=== PATIENT | female | born 1950 | race Caucasian/White ===

== ENCOUNTER → 2018-09-02 16:04 | Outpatient (CLI) | payer OTHER, SELFPAY ==
--- NOTE | 2018-09-02 16:10 | DI.RAD.S_ITS ---
PROCEDURE: XR CHEST 2V INDICATIONS: shortness of breath TECHNIQUE: 2 views of the chest were acquired. COMPARISON: None. FINDINGS: Surgical changes and devices: None. Lungs and pleura: Lungs are clear. No pleural effusions or pneumothorax. Mediastinum: Mediastinal contours are normal. Heart size is normal. Bones and chest wall: No suspicious bony abnormalities. Soft tissues appear unremarkable. IMPRESSION: Negative chest. No acute cardiopulmonary process is evident. Dictated by: Chaim Santos M.D. on 09/02/2018 at 16:01 Approved by: Chaim Santos M.D. on 09/02/2018 at 16:01
== END ==
PROVIDERS: PCP Nurse Practitioner; Visit Provider Physician Assistant
DX: R06.02 Shortness of breath (principal)
CPT/HCPCS: 36415; 71046; 82550; 84484; 85379

== ENCOUNTER → 2018-09-02 16:29 | Outpatient (CLI) | payer OTHER, SELFPAY ==
[2018-09-02 17:13] LABS: Creatine Kinase 64 U/L (30-135)
[2018-09-02 17:18] LABS: D Dimer < 200 ng/mL (<230)
[2018-09-02 17:26] LABS: Troponin I < 0.012 ng/mL (0.01-0.034)
== END ==
PROVIDERS: Family Provider Nurse Practitioner; PCP Nurse Practitioner; Visit Provider Physician Assistant
DX: R06.02 Shortness of breath (principal)
CPT/HCPCS: 36415; 82550; 84484; 85379

== ENCOUNTER → 2018-11-02 15:55 | Outpatient (CLI) | payer OTHER, SELFPAY ==
--- NOTE | 2018-11-02 08:00 | DI.MG.S_ITS ---
BILATERAL DIGITAL SCREENING MAMMOGRAM 3D/2D WITH CAD: 11/02/2018 CLINICAL: Routine screening. Family history of breat cancer. Comparison is made to exam dated: 06/09/2017 mammogram - [facility]. There are scattered fibroglandular elements in both breasts. Current study was also evaluated with a Computer Aided Detection (CAD) system. No significant masses, calcifications, or other findings are seen in either breast. There has been no significant interval change. IMPRESSION: NEGATIVE There is no mammographic evidence of malignancy. A 1 year screening mammogram is recommended. This exam was interpreted at Station ID: [id number]. NOTE: For mammograms, a report in lay terms will be sent to the patient. Approximately 15% of breast malignancies will not be visualized mammographically. In the management of a palpable breast mass, a negative mammogram must not discourage biopsy of a clinically suspicious lesion. Electronically Signed By: Catalino Hook M.D. slc/:11/24/2018 15:38:37 letter sent: Normal Exam ACR BI-RADS Category 1: Negative [id number]
== END ==
PROVIDERS: Family Provider Nurse Practitioner; PCP Nurse Practitioner; Visit Provider Nurse Practitioner
DX: Z12.31 Encounter for screening mammogram for malignant neoplasm of breast (principal); Z80.3 Family history of malignant neoplasm of breast
CPT/HCPCS: 77063; 77066; 77067; G0279

== ENCOUNTER → 2018-11-23 15:17 | Outpatient (CLI) | payer OTHER, SELFPAY ==
--- NOTE | 2018-11-23 15:24 | DI.US.S_ITS ---
PROCEDURE: US THYROID INDICATIONS: THYROID NODULE TECHNIQUE: Real-time scanning was performed of the thyroid gland, with image documentation. COMPARISON: Outside Facility, RG, US SOFT TISSUE HEAD OR NECK, 04/16/2016, 13:32. FINDINGS: Right: Thyroid lobe measures 5.4 x 2.1 x 1.6 cm, and is homogeneous in echotexture. Left: Thyroid lobe measures 4.8 x 1.6 x 1.4 cm, and is homogenous in echotexture. Isthmus: 3.0 mm thick. Nodule number: 1 Location: Right mid inferior Size: Not significantly changed at 1.9 x 1.0 x 0.8 cm. Composition: Predominance of Echogenicity: Isoechoic Shape: wider than tall. Margins: Smooth Echogenic foci: None Total points: 3 ACR TI-RADS category: Mildly suspicious Nodule number: 2 Location: Right mid inferior Size: Slightly increased at 1.4 x 0.8 x 0.8 cm. Composition: Predominantly solid Echogenicity: Isoechoic Shape: wider than tall. Margins: Smooth Echogenic foci: None Total points: 3 ACR TI-RADS category: Mildly suspicious Nodule number: 3 Location: Right inferior Size: Unchanged at 1.0 x 1.0 x 1.0 cm. Composition: Solid Echogenicity: Isoechoic Shape: wider than tall. Margins: Smooth Echogenic foci: None Total points: 3 ACR TI-RADS category: Mildly suspicious Nodule number: 4 Location: Left superior Size: Slightly increased at 0.8 x 0.7 x 0.5 cm. Composition: Solid Echogenicity: Hypoechoic Shape: wider than tall. Margins: Smooth Echogenic foci: None Total points: 4 ACR TI-RADS category: Moderately suspicious Nodule number: 5 Location: Left inferior Size: 0.5 x 0.5 x 0.3 cm. Composition: Predominantly cystic Echogenicity: Hypoechoic Shape: wider than tall. Margins: Smooth Echogenic foci: None Total points: 2 ACR TI-RADS category: No suspicious Nodule number: 6 Location: Left inferior Size: 0.6 x 0.4 x 0.3 cm. Composition: Predominantly cystic Echogenicity: Hypoechoic Shape: wider than tall. Margins: Smooth Echogenic foci: None Total points: 2 ACR TI-RADS category: No suspicious IMPRESSION: Bilateral thyroid nodules as above. Recommend continued followup ultrasound as detailed below. ACR TI-RADS definitions and recommendations: TI-RADS 1 (benign): 0 points. FNA not needed. TI-RADS 2 (not suspicious): 2 points. FNA not needed. TI-RADS 3 (mildly suspicious): 3 points. * FNA if 2.5 cm or larger, follow up if 1.5 cm or larger (at 1, 3, and 5 years). TI-RADS 4 (moderately suspicious): 4-6 points. * FNA if 1.5 cm or larger, follow up if 1 cm or larger (at 1, 2, 3, and 5 years). TI-RADS 5 (highly suspicious): 7 points or more. * FNA if 1 cm or larger, follow up if 0.5 cm or larger (every year for 5 years). Dictated by: Sergio VALDERRAMA Interpreted: Krystal Sterling MD on 11/23/2018 at 16:33 Approved by: Krystal Sterling M.D. on 11/23/2018 at 18:29
== END ==
PROVIDERS: PCP Nurse Practitioner; Visit Provider Nurse Practitioner
DX: E04.2 Nontoxic multinodular goiter (principal); I10 Essential (primary) hypertension
CPT/HCPCS: 76536

== ENCOUNTER → 2018-11-30 10:52 | Outpatient (CLI) | payer OTHER, SELFPAY ==
[2018-11-30 11:21] LABS: Add Manual Diff / Slide Review NO; Basophils Absolute Auto 0 /uL (0-100); Basophils Percent Auto 1.3 % (0-2); Eosinophils Absolute Auto 100 /uL (0-450); Eosinophils Percent Auto 3.1 % (2-4); Hematocrit 40.5 % (36-46); Hemoglobin 13.5 g/dL (12.0-16.0); Lymphocytes Absolute Auto 700 /uL (1100-4500); Lymphocytes Percent Auto 23.2 % (25-40); Mean Corpuscular HGB Conc 33.3 % (30-36); Mean Corpuscular Hemoglobin 26.6 PG (26-34); Mean Corpuscular Volume 79.8 fL (80-100); Monocytes Absolute Auto 200 /uL (0-900); Monocytes Percent Auto 7.6 % (3-14); Neutrophils Absolute Auto 1900 /uL (1500-7000); Neutrophils Percent Auto 64.8 % (50-75); Platelet Count 185 X10^3/uL (150-400); Red Blood Cell Count 5.07 X10^6/uL (4.0-5.2); White Blood Cell Count 2.9 X10^3/uL (4.5-11.0)
[2018-11-30 12:13] LABS: Alanine Aminotransferase 22 IU/L (9-52); Albumin 4.1 g/dL (3.5-5.0); Albumin Globulin Ratio 1.6 (1.0-2.8); Alkaline Phosphatase 58 U/L (38-126); Aspartate Aminotransferase 23 IU/L (14-36); BUN Creatinine Ratio 21.4 (6-22); Bilirubin Total 0.7 mg/dL (0.2-1.3); Blood Urea Nitrogen 15 mg/dL (7-17); Calcium 9.4 mg/dL (8.4-10.2); Carbon Dioxide 29 mmol/L (22-32); Chloride 104 mmol/L (98-107); Cholesterol 172 mg/dL (140-199); Estimated Glomerular Filt Rate > 60.0 mL/min (>60); Globulin 2.5 g/dL (1.7-4.1); Glucose 90 mg/dL (80-110); HDL Cholesterol 56 mg/dL (40-60); HEMOLYSIS < 15 (0-50); LDL Cholesterol Calculated 97 mg/dL (<100); Potassium 3.9 mmol/L (3.4-5.1); Sodium 139 mmol/L (137-145); Total Protein 6.6 g/dL (6.3-8.2); Triglycerides 93 mg/dL (35-150)
[2018-11-30 12:14] LABS: Creatinine Urine Random 20.1 mg/dL
[2018-11-30 12:20] LABS: Microalbumi Creatinin Ratio Ur 29.8 ug/mg CR (<30); Microalbumin Urine Random < 0.6 mg/dL (0-1.6)
[2018-11-30 12:45] LABS: TSH w/ Reflex to FT4 1.78 uIU/mL (0.47-4.68)
== END ==
PROVIDERS: PCP Nurse Practitioner; Visit Provider Nurse Practitioner
DX: I10 Essential (primary) hypertension (principal); Z79.899 Other long term (current) drug therapy; D72.819 Decreased white blood cell count, unspecified; E78.00 Pure hypercholesterolemia, unspecified; E04.1 Nontoxic single thyroid nodule
CPT/HCPCS: 36415; 80053; 80061; 82043; 82570; 84443; 85025

== ENCOUNTER 2018-12-16 13:22 | Day surgery (SDC) | payer OTHER, MEDICARE, SELFPAY ==
[2018-12-16] VITALS (10 sets, daily range): BP systolic 113–139; BP diastolic 64–84; PULSE 62–84; RESP 11–16; TEMP 36.3–36.8; O2SAT 94–100; BMI 26.0
[2018-12-16] MEDS: SODIUM CHLORIDE 0.9% 1,000 ML 200 ML IV (13:40)
--- NOTE | 2018-12-16 14:07 | PM.HP.1 ---
History of Present Illness History of Present Illness Date Patient Seen: 12/16/18 Time Patient Seen: 14:07 Chief complaint: [address] Narrative: Patient presents for colorectal screening. They had a previous colonoscopy in 1996 which was normal. On further history denies any recent gastrointestinal symptoms. No nausea, vomiting, abdominal pain, loss of appetite, unexplained weight loss, change in bowel habits, diarrhea, constipation, melena, hematochezia, or bright red blood per rectum. Patient History Medical History (Updated 10/12/18 @ 16:44 by ASHLEY Ruiz) Anemia (Chronic) Ankle pain (Chronic ~2014) Chicken pox (Resolved) Depression (Chronic ~2013) Endometriosis (Chronic ~1993) Fibromyalgia (Chronic ~2005) Foot pain (Chronic ~2014) Heart murmur (Chronic) History of urinary incontinence (Chronic) Measles (Resolved) Migraines (Chronic) Mumps (Resolved) Pneumonia (Chronic) Seborrheic keratosis (Chronic ~2006) Surgical History (Updated 10/12/18 @ 16:44 by ASHLEY Ruiz) Anesthesia (Resolved) History of bladder surgery (Resolved ~1993) History of hysterectomy (Resolved ~1993) History of varicose vein stripping (Resolved ~1993) Family History (Updated 09/21/18 @ 20:01 by Aletha Cano) Father Cancer Mother Cancer Brother Hypertension Alcoholic Grandfather Stroke Grandmother Hypertension Grandfather COPD (chronic obstructive pulmonary disease) Grandmother Alzheimer's disease Social History household members: spouse Smoking Status: Never smoker second hand exposure: No alcohol intake: current (a glass of wine once a week max.) substance use type: does not use Family & Social History Family History (Updated 09/21/18 @ 20:01 by Aletha Cano) Father Cancer Mother Cancer Brother Hypertension Alcoholic Grandfather Stroke Grandmother Hypertension Grandfather COPD (chronic obstructive pulmonary disease) Grandmother Alzheimer's disease Social History: household members spouse Tobacco & Substance use: Smoking Status Never smoker alcohol intake current Meds Home Medications and Allergies Home Medications Medication Instructions Recorded Confirmed Type cranberry extract 200 mg capsule 200 mg PO DAILY 08/15/18 10/06/18 History valacyclovir 500 mg tablet 500 mg PO PRN #0 08/15/18 10/06/18 History Vitamin D3 1 cap PO DAILY 09/16/18 10/06/18 History atorvastatin 20 mg tablet 20 mg PO DAILY 09/16/18 10/06/18 History lysine 500 mg tablet 500 mg PO DAILY 09/16/18 10/06/18 History lisinopril 20 mg tablet 20 mg PO BID #180 tab 11/16/18 12/16/18 Rx Allergies Allergy/AdvReac Type Severity Reaction Status Date / Time codeine [CODEINE] AdvReac Intermediate Nausea and Verified 12/16/18 13:41 vomiting Review of Systems Review of Systems ROS Unobtainable: All systems reviewed & are unremarkable except as noted in HPI and below Exam Vital Signs (past 8 hours): - 12/16/18 13:42 Temperature 97.4 F L Pulse Rate 84 Respiratory Rate 16 Blood Pressure 139/84 Pulse Oximetry 100 Oxygen Delivery Method Room Air Narrative Exam Narrative: General-adult female no acute distress, well nourished HEENT-moist mucous membranes, no scleral icterus Neck-supple with full range of motion, no lymphadenopathy Chest- no labored respirations, clear to auscultation bilaterally Cardiac-regular rate and rhythm Abdomen-soft, nontender, non distended Extremities-no edema, warm well perfused Neurological-alert and oriented x 3. No focal deficits Skin-normal temperature and turgor, no rashes or ulcers Assessment & Plan Assessment & Plan narrative: Patient is requiring colorectal screening. Colonoscopy is recommended. Technical details were discussed. Risks, benefits, alternatives explained. Risks including but not limited to sedation, aspiration, bleeding, pain, missed lesion, incomplete examination, need for further radiographic studies, colonic perforation, need for major abdominal surgery, and all attendant risks major surgery were discussed at length. All questions were answered to their satisfaction, and they voiced understanding.
--- NOTE | 2018-12-16 14:37 | PM.OP.ENDO ---
Operative Date/Time/Diagnoses Date of procedure: 12/16/18 Time of procedure: 14:37 Pre-op diagnosis: screening colonoscopy Post-op diagnosis: same Procedure & Clinicians Study performed: Colonoscopy Same procedure as scheduled: Yes Indications: 67-year-old woman previous colonoscopy 1996 and presents for screening Surgeon: David Quiles Procedure Notes SCOAP/Timeout: Performed Procedure in detail: Digital rectal exam was performed that demonstrated no internal masses. Scope was advanced into rectum and then through the colon. The ileocecal valve was reached. The scope was then carefully withdrawn. The quality of prep was excellent. There were no masses polyps or diverticulosis. The scope was retroflexed within the rectum and demonstrated grade 1 internal hemorrhoids. Scope withdrawal time: 9 Sedation minutes: 28 Specimen(s): none sent Complications: none Impression: Normal colonoscopy Post-procedure Recommendations: Colonscopy in 10 years
[2018-12-16] MEDS: fentaNYL 250 MCG/5 ML INJ IV (15:11)
[2018-12-16] MEDS: MIDAZOLAM 5 MG/5 ML VIAL IV (15:11)
[2018-12-16] MEDS: ONDANSETRON 4 MG/2 ML INJ IV (16:20)
--- NOTE | 2018-12-16 16:26 | SUR.PHASEII ---
Pt vomited a small amt of yellow fluid. Dr. Quiles notified, 4mg zofran ordered and given.
--- NOTE | 2018-12-16 16:58 | SUR.PHASEII ---
Nausea resolved. Pt requested to discharge. Able to dress independently.
== END 2018-12-16 16:35 | disposition home or self-care (01) ==
PROVIDERS: PCP Nurse Practitioner; Visit Provider Surgery
PROC: 0DJD8ZZ Inspection of Lower Intestinal Tract, Via Natural or Artificial Opening Endoscopic (ICD-10-PCS; CPT 45378; principal; 2018-12-16 14:30)
DX: Z12.11 Encounter for screening for malignant neoplasm of colon (principal); K64.0 First degree hemorrhoids
CPT/HCPCS: G0121; 99152; 99153; J2250; J2405; J3010

== ENCOUNTER 2019-06-02 13:51 | Emergency (ER) | payer MEDICARE, SELFPAY ==
--- NOTE | 2019-06-02 14:13 | PC.NURSE ---
Went to greet / triage patient @ [id number], not in waiting room.
--- NOTE | 2019-06-02 14:23 | PC.NURSE ---
Checked for patient, still not in either waiting area. Of note, Jb from registration who was able to id patient walked to the far central registration area / OR waiting area and she was not there.
--- NOTE | 2019-06-03 07:57 | ED.ABDPAIN ---
HPI - Abdominal Pain General Stated Complaint: Hard time breathing, thinks has pneumonia History of Present Illness HPI narrative: Essentially the patient left without treatment and could not be found in triage or in the emergency department. The patient was not seen, evaluated or examined by myself. Related Data Home Medications Medication Instructions Recorded Confirmed cranberry extract 200 mg capsule 200 mg PO DAILY 08/15/18 05/10/19 Vitamin D3 1 cap PO DAILY 09/16/18 06/02/19 lysine 500 mg tablet 500 mg PO DAILY 09/16/18 05/10/19 atorvastatin 20 mg tablet 20 mg PO DAILY tab 05/10/19 06/02/19 Previous Rx's Medication Instructions Recorded valacyclovir 500 mg tablet 500 mg PO BID PRN #20 tab 04/27/19 benzonatate 100 mg capsule 100 mg PO BID-TID PRN #20 cap 05/10/19 lisinopril 20 mg tablet 20 mg PO BID #180 tab 05/29/19 albuterol sulfate 2 puff INHALATION Q4-6H PRN #18 06/02/19 gram prednisone 40 mg PO DAILY #10 tab 06/02/19 promethazine-DM 5 ml PO Q4-6H PRN #100 ml 06/02/19 Allergies Allergy/AdvReac Type Severity Reaction Status Date / Time codeine [CODEINE] AdvReac Intermediate Nausea and Verified 06/02/19 15:53 vomiting Patient History Social History household members: spouse Smoking Status: Never smoker second hand exposure: No alcohol intake: current (a glass of wine once a week max.) substance use type: does not use Smoking Status: Never smoker alcohol intake frequency: holidays/special occasions only Substance Use Type: does not use Discharge Plan Departure Patient Disposition: Home Clinical Impression: Patient left without being seen Discharge Date/Time: 06/02/19 15:39 Prescriptions: No Action cranberry extract 200 mg capsule 200 mg PO DAILY RF: 0 valacyclovir 500 mg tablet 500 mg PO BID PRN (Reason: Cold Sores) Qty: 20 RF: 3 lisinopril 20 mg tablet 20 mg PO BID Qty: 180 RF: 0 lysine 500 mg tablet 500 mg PO DAILY RF: 0 Vitamin D3 1 cap PO DAILY RF: 0 atorvastatin 20 mg tablet 20 mg PO DAILY RF: 0 benzonatate 100 mg capsule 100 mg PO BID-TID PRN (Reason: cough) Qty: 20 RF: 0 prednisone 20 mg tablet 40 mg PO DAILY Qty: 10 RF: 0 albuterol sulfate 90 mcg/actuation HFA aerosol inhaler 2 puff INHALATION Q4-6H PRN (Reason: shortness of breath or wheezing) Qty: 18 RF: 0 promethazine-DM 6.25-15 mg/5 mL syrup 5 ml PO Q4-6H PRN (Reason: cough) Qty: 100 RF: 0
== END 2019-06-02 15:39 | disposition home or self-care (01) ==
PROVIDERS: Emergency Provider Emergency Medicine; PCP Nurse Practitioner

== ENCOUNTER 2019-06-02 15:40 | Emergency (ER) | payer MEDICARE, SELFPAY ==
[2019-06-02 15:53] VITALS: BP 163/92; PULSE 70; RESP 19; TEMP 36.6; O2SAT 99; BMI 25.8
--- NOTE | 2019-06-02 16:21 | DI.RAD.S_ITS ---
PROCEDURE: XR CHEST 2V INDICATIONS: possible pneumonia TECHNIQUE: 2 views of the chest were acquired. COMPARISON: [facility], CR, XR CHEST 2V, 09/02/2018, 16:12. FINDINGS: Surgical changes and devices: None. Lungs and pleura: Lungs appear clear and unchanged. No pleural effusions or pneumothorax. Mediastinum: Mediastinal contours are normal. Heart size is normal. Bones and chest wall: No suspicious bony abnormalities. Soft tissues appear unremarkable. IMPRESSION: No acute cardiopulmonary abnormality. Dictated by: Catalino Hook M.D. on 06/02/2019 at 16:57 Approved by: Catalino Hook M.D. on 06/02/2019 at 16:58
[2019-06-02 17:42] LABS: Add Manual Diff / Slide Review NO; Basophils Absolute Auto 100 /uL (0-100); Basophils Percent Auto 1.5 % (0-2); Eosinophils Absolute Auto 200 /uL (0-450); Eosinophils Percent Auto 6.2 % (2-4); Hematocrit 40.6 % (36-46); Hemoglobin 13.3 g/dL (12.0-16.0); Lymphocytes Absolute Auto 1000 /uL (1100-4500); Lymphocytes Percent Auto 28.3 % (25-40); Mean Corpuscular HGB Conc 32.7 % (30-36); Mean Corpuscular Hemoglobin 26.2 PG (26-34); Mean Corpuscular Volume 80.1 fL (80-100); Monocytes Absolute Auto 300 /uL (0-900); Monocytes Percent Auto 7.4 % (3-14); Neutrophils Absolute Auto 1900 /uL (1500-7000); Neutrophils Percent Auto 56.6 % (50-75); Platelet Count 208 X10^3/uL (150-400); Red Blood Cell Count 5.08 X10^6/uL (4.0-5.2); Red Cell Distribution Width 15.1 % (11.6-14.8); White Blood Cell Count 3.4 X10^3/uL (4.5-11.0)
[2019-06-02 18:02] LABS: Alanine Aminotransferase 21 IU/L (<35); Albumin 4.5 g/dL (3.5-5.0); Albumin Globulin Ratio 1.5 (1.0-2.8); Alkaline Phosphatase 67 U/L (38-126); Aspartate Aminotransferase 23 IU/L (14-36); BUN Creatinine Ratio 16.2 (6-22); Bilirubin Total 0.5 mg/dL (0.2-1.3); Blood Urea Nitrogen 12 mg/dL (7-17); Calcium 9.5 mg/dL (8.4-10.2); Carbon Dioxide 28 mmol/L (22-32); Chloride 105 mmol/L (98-107); Estimated Glomerular Filt Rate > 60.0 mL/min (>60); Glucose 92 mg/dL (80-110); HEMOLYSIS < 15 (0-50); Potassium 3.8 mmol/L (3.4-5.1); Sodium 141 mmol/L (137-145); Total Protein 7.5 g/dL (6.3-8.2)
[2019-06-02 18:07] LABS: Influenza A - CEPHEID Flu A NEGATIVE (NEGATIVE); Influenza B - CEPHEID Flu B NEGATIVE (NEGATIVE)
[2019-06-02 18:11] LABS: NT-proBNP (BNP-Adult 18+) 87 pg/mL (<125)
[2019-06-02] MEDS: ALBUTEROL 2.5 MG/3 ML NEB (ADULT) INH (19:06)
[2019-06-02 19:19] VITALS: PULSE 70; RESP 20; O2SAT 97
[2019-06-02 19:28] VITALS: BP 190/70; PULSE 80; RESP 24
--- NOTE | 2019-06-02 19:38 | PC.NURSE ---
Pt appears mildly anxious.Lungs CTA.No acute resp distress.Lungs CTA.Skin PWD.AOX4.
[2019-06-02] MEDS: ALBUTEROL HFA PREPACK 1 BOX MISC (20:16)
[2019-06-02 20:23] VITALS: PULSE 73; RESP 16; O2SAT 99
--- NOTE | 2019-06-02 20:23 | ED.SOB ---
HPI - SOB/Dyspnea <ANGEL Neville - Last Filed: 06/02/19 20:35> General Chief Complaint: Shortness of Breath/Dyspnea Stated Complaint: thinks she has pneumonia Time Seen by Provider: 06/02/19 16:40 Source: patient Mode of arrival: Ambulatory Limitations: no limitations History of Present Illness HPI Narrative: The patient is a 68-year-old female nonsmoker presents with a chief complaint of a cough on and off for the past several months. She states it got worse over the past 2 days. She denies any chest pain fevers nausea vomiting diarrhea. She states she feels like her lungs are burning. She recently core finished a course of Augmentin for bronchitis. She states she was on Tessalon Perles they have not been helping. Vaccinations are up-to-date she denies any GI involvement. She denies any ear pain or sore throat. Related Data Home Medications Medication Instructions Recorded Confirmed cranberry extract 200 mg capsule 200 mg PO DAILY 08/15/18 05/10/19 Vitamin D3 1 cap PO DAILY 09/16/18 06/02/19 lysine 500 mg tablet 500 mg PO DAILY 09/16/18 05/10/19 atorvastatin 20 mg tablet 20 mg PO DAILY tab 05/10/19 06/02/19 Previous Rx's Medication Instructions Recorded valacyclovir 500 mg tablet 500 mg PO BID PRN #20 tab 04/27/19 benzonatate 100 mg capsule 100 mg PO BID-TID PRN #20 cap 05/10/19 lisinopril 20 mg tablet 20 mg PO BID #180 tab 05/29/19 albuterol sulfate 2 puff INHALATION Q4-6H PRN #18 06/02/19 gram prednisone 40 mg PO DAILY #10 tab 06/02/19 promethazine-DM 5 ml PO Q4-6H PRN #100 ml 06/02/19 Allergies Allergy/AdvReac Type Severity Reaction Status Date / Time codeine [CODEINE] AdvReac Intermediate Nausea and Verified 06/02/19 15:53 vomiting Review of Systems <ANGEL Neville - Last Filed: 06/02/19 20:35> Review of Systems Narrative: GENERAL: Denies chills, fatigue, malaise, fever, sweats. HEENT: Denies sinus pain, ear pain, sore throat, difficulty swallowing, dizziness. RESPIRATORY: See HPI CARDIOVASCULAR: Denies chest pain, palpitations, orthopnea, edema, GASTROINTESTINAL: Denies nausea, vomiting, abdominal pain, diarrhea, constipation, melena. : Denies dysuria, frequency, incontinence, hematuria, urinary retention. MUSCULOSKELETAL: denies weakness, joint pain, or bony pain SKIN: Denies rash, skin lesions, or other NEUROLOGIC: Denies weakness, headache, numbness, change in speech, confusion, seizures, incoordination. PSYCHIATRIC: No concerning psychosocial issues. 12 point review of systems is negative except for those stated above Patient History <ANGEL Neville - Last Filed: 06/02/19 20:35> Medical History Anemia (Chronic) Ankle pain (Chronic ~2014) Chicken pox (Resolved) Depression (Chronic ~2013) Endometriosis (Chronic ~1993) Fibromyalgia (Chronic ~2005) Foot pain (Chronic ~2014) Heart murmur (Chronic) History of urinary incontinence (Chronic) Measles (Resolved) Migraines (Chronic) Mumps (Resolved) Pneumonia (Chronic) Seborrheic keratosis (Chronic ~2006) Surgical History Anesthesia (Resolved) History of bladder surgery (Resolved ~1993) History of hysterectomy (Resolved ~1993) History of varicose vein stripping (Resolved ~1993) Family History Father Cancer Mother Cancer Brother Hypertension Alcoholic Grandfather Stroke Grandmother Hypertension Grandfather COPD (chronic obstructive pulmonary disease) Grandmother Alzheimer's disease Social History household members: spouse Smoking Status: Never smoker second hand exposure: No alcohol intake: current (a glass of wine once a week max.) substance use type: does not use Smoking Status: Never smoker alcohol intake frequency: holidays/special occasions only Substance Use Type: does not use Exam <ANGEL Neville - Last Filed: 06/02/19 20:35> Narrative Exam Narrative: GENERAL: This is a well-nourished, well-developed patient, no acute distress HEAD: Atraumatic. Normocephalic. No temporal or scalp tenderness. EYES: Pupils equal round and reactive. Extraocular motions intact. No scleral icterus. No injection or drainage. ENT: Nose without bleeding, purulent drainage or septal hematoma. Throat without erythema, tonsillar hypertrophy or exudate. Uvula midline. Airway patent. Bilateral TMs pearly black. NECK: Trachea midline. No JVD or lymphadenopathy. Supple, nontender, no meningeal signs. CARDIOVASCULAR: Regular rate and rhythm without murmurs, gallops, or rubs. RESPIRATORY: Clear to auscultation. Breath sounds equal bilaterally. No wheezes, rales, or rhonchi. Very perseverative dry cough. No increased respiratory effort. Speaking full sentences. GASTROINTESTINAL: Abdomen soft, non-tender, nondistended. No hepato-splenomegaly, or palpable masses. No guarding. EXTREMITIES: No clubbing, cyanosis, or edema. No joint tenderness, effusion, or edema noted. BACK: Nontender without deformity or crepitance. No flank tenderness. NEURO: AOx3. SKIN: No rash or erythema on visible skin Initial Vital Signs Initial Vital Signs: Vital Signs Temperature 97.9 F 06/02/19 15:53 Pulse Rate 70 06/02/19 15:53 Respiratory Rate 19 06/02/19 15:53 Blood Pressure 163/92 H 06/02/19 15:53 Pulse Oximetry 99 06/02/19 15:53 <Belle Menendez MD - Last Filed: 06/03/19 03:16> Initial Vital Signs Initial Vital Signs: Vital Signs Temperature 97.9 F 06/02/19 15:53 Pulse Rate 70 06/02/19 15:53 Respiratory Rate 19 06/02/19 15:53 Blood Pressure 163/92 H 06/02/19 15:53 Pulse Oximetry 99 06/02/19 15:53 Scores <ANGEL Neville - Last Filed: 06/02/19 20:35> GCS Brooke coma scale eye opening: Spontaneous Brooke coma scale verbal response: Orientated Dandridge coma scale motor response: Obey commands Brooke coma scale total score: 15 Course <ANGEL Neville - Last Filed: 06/02/19 20:35> Orders Ordered: Discontinued Medications Albuterol (Ventolin) 2.5 mg INH NOW ONE Stop: 06/02/19 19:01 Last Admin: 06/02/19 19:06 Dose: 2.5 mg Documented by: BFOX Albuterol (Ventolin Hfa Prepack) 1 box [facility] ONE Stop: 06/02/19 20:13 Last Admin: 06/02/19 20:16 Dose: 1 box Documented by: KAROL Vital Signs Vital signs: Vital Signs - 8 hr 06/02/19 19:19 06/02/19 19:28 06/02/19 20:23 Pulse Rate 70 80 73 Respiratory Rate 20 24 16 Blood Pressure [Left Arm] 190/70 H Pulse Oximetry 97 99 06/02/19 20:26 Pulse Rate 75 Respiratory Rate 17 Blood Pressure [Left Arm] 170/90 H Pulse Oximetry 97 <Belle Menendez MD - Last Filed: 06/03/19 03:16> Orders Ordered: Discontinued Medications Albuterol (Ventolin) 2.5 mg INH NOW ONE Stop: 06/02/19 19:01 Last Admin: 06/02/19 19:06 Dose: 2.5 mg Documented by: BFOX Albuterol (Ventolin Hfa Prepack) 1 box [facility] ONE Stop: 06/02/19 20:13 Last Admin: 06/02/19 20:16 Dose: 1 box Documented by: KAROL Vital Signs Vital signs: Vital Signs - 8 hr 06/02/19 19:19 06/02/19 19:28 06/02/19 20:23 Pulse Rate 70 80 73 Respiratory Rate 20 24 16 Blood Pressure [Left Arm] 190/70 H Pulse Oximetry 97 99 06/02/19 20:26 Pulse Rate 75 Respiratory Rate 17 Blood Pressure [Left Arm] 170/90 H Pulse Oximetry 97 MDM - SOB/Dyspnea <ANGEL Neville - Last Filed: 06/02/19 20:35> Lab Data Result diagrams: 06/02/19 17:30 06/02/19 17:30 Labs: Lab Results 06/02/19 06/02/19 06/02/19 Range/Units 17:25 17:30 17:30 WBC 3.4 L (4.5-11.0) X10^3/uL RBC 5.08 (4.0-5.2) X10^6/uL Hgb 13.3 (12.0-16.0) g/dL Hct 40.6 (36-46) % MCV 80.1 (80-100) fL MCH 26.2 (26-34) PG MCHC 32.7 (30-36) % RDW 15.1 H (11.6-14.8) % Plt Count 208 (150-400) X10^3/uL Neut % (Auto) 56.6 (50-75) % Lymph % (Auto) 28.3 (25-40) % Foster % (Auto) 7.4 (3-14) % Eos % (Auto) 6.2 H (2-4) % Baso % (Auto) 1.5 (0-2) % Neut # (Auto) 1900 (8016-2954) /uL Lymph # (Auto) 1000 L (1774-3492) /uL Foster # (Auto) 300 (0-900) /uL Eos # (Auto) 200 (0-450) /uL Baso # (Auto) 100 (0-100) /uL Sodium 141 (137-145) mmol/L Potassium 3.8 (3.4-5.1) mmol/L Chloride 105 (98-107) mmol/L Carbon Dioxide 28 (22-32) mmol/L BUN 12 (7-17) mg/dL Creatinine 0.74 (0.52-1.04) mg/dL Estimated GFR > 60.0 (>60) mL/min BUN/Creatinine Ratio 16.2 (6-22) Glucose 92 (80-110) mg/dL Calcium 9.5 (8.4-10.2) mg/dL Total Bilirubin 0.5 (0.2-1.3) mg/dL AST 23 (14-36) IU/L ALT 21 (<35) IU/L Alkaline Phosphatase 67 (38-126) U/L NT-Pro-B Natriuret Pep 87 (<125) pg/mL Total Protein 7.5 (6.3-8.2) g/dL Albumin 4.5 (3.5-5.0) g/dL Globulin 3.0 (1.7-4.1) g/dL Albumin/Globulin Ratio 1.5 (1.0-2.8) Influenza A (RT-PCR) Flu a negative (NEGATIVE) Influenza B (RT-PCR) Flu b negative (NEGATIVE) Point of Care Testing Rapid Strep A Negative Imaging Data Chest x-ray: Radiologist's Impression: [address] [place] [id number] XRay Report Signed Patient: Alessandra Barr EMR#: [id number] : 3Acct:[id number] Age/Sex: 68 / FDate of Service: 06/02/19 Loc: ED Accession Number: [id number] Procedure: XR chest 2V Ordering Provider: Joey Connor MD PROCEDURE: XR CHEST 2V INDICATIONS: possible pneumonia TECHNIQUE: 2 views of the chest were acquired. COMPARISON: [facility], , XR CHEST 2V, 09/02/2018, 16:12. FINDINGS: Surgical changes and devices: None. Lungs and pleura: Lungs appear clear and unchanged. No pleural effusions or pneumothorax. Mediastinum: Mediastinal contours are normal. Heart size is normal. Bones and chest wall: No suspicious bony abnormalities. Soft tissues appear unremarkable. IMPRESSION: No acute cardiopulmonary abnormality. MDM Narrative Medical decision making narrative: The patient is a 68-year-old female who presents with a chief complaint of a cough going on for several months. I will works grossly normal, normal BNP. Chest x-ray shows no acute pneumonias. She responded well to a single dose of albuterol by neb in the emergency department, so she received spacer changing. She is placed on prednisone, given guaifenesin promethazine to help her sleep and a prescription for albuterol. I discussed at length the importance of following up with primary care provider. She has no indications for antibiotic therapy at this point time, she has no leukocytosis, nothing on her x-ray and no acute bacterial infection on her exam. I discussed at length coming back to the emergency department for any acute concerns such as inability keep down clear, severe and shortness of breath etcetera. Given the patient's history of viral symptoms, shortness of breath and cough, we did elect to do carotid virus testing given that her flu test is negative as well. Throat cultures pending at this time as well. Patient has no questions or concerns upon discharge and states understanding return precautions as well as follow-up care. She has been hemodynamically stable throughout her stay in the emergency department. <Belle Menendez MD - Last Filed: 06/03/19 03:16> Lab Data Labs: Lab Results 06/02/19 06/02/19 06/02/19 Range/Units 17:25 17:30 17:30 WBC 3.4 L (4.5-11.0) X10^3/uL RBC 5.08 (4.0-5.2) X10^6/uL Hgb 13.3 (12.0-16.0) g/dL Hct 40.6 (36-46) % MCV 80.1 (80-100) fL MCH 26.2 (26-34) PG MCHC 32.7 (30-36) % RDW 15.1 H (11.6-14.8) % Plt Count 208 (150-400) X10^3/uL Neut % (Auto) 56.6 (50-75) % Lymph % (Auto) 28.3 (25-40) % Foster % (Auto) 7.4 (3-14) % Eos % (Auto) 6.2 H (2-4) % Baso % (Auto) 1.5 (0-2) % Neut # (Auto) 1900 (5460-3074) /uL Lymph # (Auto) 1000 L (5411-2615) /uL Foster # (Auto) 300 (0-900) /uL Eos # (Auto) 200 (0-450) /uL Baso # (Auto) 100 (0-100) /uL Sodium 141 (137-145) mmol/L Potassium 3.8 (3.4-5.1) mmol/L Chloride 105 (98-107) mmol/L Carbon Dioxide 28 (22-32) mmol/L BUN 12 (7-17) mg/dL Creatinine 0.74 (0.52-1.04) mg/dL Estimated GFR > 60.0 (>60) mL/min BUN/Creatinine Ratio 16.2 (6-22) Glucose 92 (80-110) mg/dL Calcium 9.5 (8.4-10.2) mg/dL Total Bilirubin 0.5 (0.2-1.3) mg/dL AST 23 (14-36) IU/L ALT 21 (<35) IU/L Alkaline Phosphatase 67 (38-126) U/L NT-Pro-B Natriuret Pep 87 (<125) pg/mL Total Protein 7.5 (6.3-8.2) g/dL Albumin 4.5 (3.5-5.0) g/dL Globulin 3.0 (1.7-4.1) g/dL Albumin/Globulin Ratio 1.5 (1.0-2.8) Influenza A (RT-PCR) Flu a negative (NEGATIVE) Influenza B (RT-PCR) Flu b negative (NEGATIVE) Point of Care Testing Rapid Strep A Negative Discharge Plan Departure Patient Disposition: Home Clinical Impression: Bronchitis Discharge Date/Time: 06/02/19 20:41 Instructions: DI for Acute Bronchitis Activity Restrictions/Additional Instructions: Thank you for trusting us with your care today. A as I discussed, you do not have any evidence of bacterial pneumonia on her exam. However we are treating you for a viral bronchitis. Please use the spacer with your inhaler. I sent a prescription of cough syrup to [facility]. This cough syrup can be sedating. I also sent a prescription for prednisone. You can start this tomorrow. You take it for 5 days. Please follow-up with primary care provider next few days. Please come back to the emergency department for any acute concerns such as significant shortness of breath, concern of heart attack or stroke. Regarding the CoVid19 testing, please self isolate at home until test results come in. We should get through results back in about 4-5 days. Please come back to emergency department for any acute concerns. Prescriptions: New prednisone 20 mg tablet 40 mg PO DAILY Qty: 10 RF: 0 albuterol sulfate 90 mcg/actuation HFA aerosol inhaler 2 puff INHALATION Q4-6H PRN (Reason: shortness of breath or wheezing) Qty: 18 RF: 0 promethazine-DM 6.25-15 mg/5 mL syrup 5 ml PO Q4-6H PRN (Reason: cough) Qty: 100 RF: 0 No Action cranberry extract 200 mg capsule 200 mg PO DAILY RF: 0 valacyclovir 500 mg tablet 500 mg PO BID PRN (Reason: Cold Sores) Qty: 20 RF: 3 lisinopril 20 mg tablet 20 mg PO BID Qty: 180 RF: 0 lysine 500 mg tablet 500 mg PO DAILY RF: 0 Vitamin D3 1 cap PO DAILY RF: 0 atorvastatin 20 mg tablet 20 mg PO DAILY RF: 0 benzonatate 100 mg capsule 100 mg PO BID-TID PRN (Reason: cough) Qty: 20 RF: 0 Referrals: Mary Ferguson ARNP [Primary Care Provider] -
[2019-06-02 20:26] VITALS: BP 170/90; PULSE 75; RESP 17; O2SAT 97
[2019-06-08 13:53] LABS: COVID19 Sendout Not Detected (Not Detected)
== END 2019-06-02 20:41 | disposition home or self-care (01) ==
PROVIDERS: Emergency Provider Nurse Practitioner Family; PCP Nurse Practitioner
DX: Z03.818 Encounter for observation for suspected exposure to other biological agents ruled out (principal); J40 Bronchitis, not specified as acute or chronic
CPT/HCPCS: 71046; 80053; 83880; 85025; 87070; 87502; 87880; 94640; 99284; DELETED; J7613

== ENCOUNTER → 2019-10-14 10:26 | Outpatient (CLI) | payer MEDICARE, SELFPAY ==
[2019-10-14 10:54] LABS: RBC Urine None Seen (0-5/HPF)
[2019-10-14 11:27] LABS: Appearance Urine UA CLEAR; Bilirubin Urine UA NEGATIVE (NEGATIVE); Color Urine UA YELLOW; Glucose Urine UA NEGATIVE (Negative); Ketones Urine UA NEGATIVE (NEGATIVE); Leukocyte Esterase Urine UA TRACE (NEGATIVE); Nitrite Urine UA NEGATIVE (Negative); Occult Blood Urine UA NEGATIVE (Negative); Protein Urine UA NEGATIVE (Negative); Urobilinogen Urine UA 0.2 E.U./dL (0.2)
[2019-10-14 11:30] LABS: pH Urine UA 6.5 (4.5-8.0)
[2019-10-14 11:33] LABS: Creatinine Urine Random 57.4 mg/dL
[2019-10-14 11:36] LABS: Bacteria Urine Moderate (10-30); Squamous Epithelial Cell Urine 5-10 /HPF (0-5/HPF); WBC Urine 10-30/HPF (0-5/HPF)
[2019-10-14 11:37] LABS: Culture Indicated Urine Cult Not Indicated
[2019-10-14 11:40] LABS: Microalbumi Creatinin Ratio Ur 10.4 ug/mg CR (<30); Microalbumin Urine Random < 0.6 mg/dL (0-1.6)
[2019-10-14 11:44] LABS: Alanine Aminotransferase 18 IU/L (<35); Albumin Globulin Ratio 1.8 (1.0-2.8); Alkaline Phosphatase 63 U/L (38-126); Aspartate Aminotransferase 23 IU/L (14-36); BUN Creatinine Ratio 18.1 (6-22); Bilirubin Total 0.6 mg/dL (0.2-1.3); Blood Urea Nitrogen 13 mg/dL (7-17); Calcium 9.3 mg/dL (8.4-10.2); Carbon Dioxide 29 mmol/L (22-32); Chloride 107 mmol/L (98-107); Cholesterol 165 mg/dL (140-199); Estimated Glomerular Filt Rate > 60.0 mL/min (>60); Globulin 2.2 g/dL (1.7-4.1); Glucose 87 mg/dL (80-110); HDL Cholesterol 65 mg/dL (40-60); HEMOLYSIS < 15 (0-50); LDL Cholesterol Calculated 89 mg/dL (<100); Potassium 4.8 mmol/L (3.4-5.1); Sodium 138 mmol/L (137-145); Total Protein 6.2 g/dL (6.3-8.2); Triglycerides 53 mg/dL (35-150)
[2019-10-14 12:00] LABS: Free T3, Triiodothyronine Free 3.05 pg/mL (2.77-5.27); Free T4, Direct Thyroxine 0.87 ng/dL (0.78-2.19)
[2019-10-14 12:14] LABS: Thyroid Stimulating Hormone 1.41 uIU/mL (0.47-4.68)
== END ==
PROVIDERS: PCP Nurse Practitioner; Referring Provider Nurse Practitioner; Visit Provider Nurse Practitioner
DX: E78.5 Hyperlipidemia, unspecified (principal); I10 Essential (primary) hypertension; R00.0 Tachycardia, unspecified; Z79.899 Other long term (current) drug therapy; R32 Unspecified urinary incontinence; R39.15 Urgency of urination
CPT/HCPCS: 36415; 80053; 80061; 81001; 82043; 82570; 84439; 84443; 84481

== ENCOUNTER → 2019-12-01 16:58 | Outpatient (CLI) | payer MEDICARE, SELFPAY ==
--- NOTE | 2019-12-01 17:00 | DI.US.S_ITS ---
PROCEDURE: US THYROID INDICATIONS: multiple thyroid nodules, follow up per recommendations TECHNIQUE: Real-time scanning was performed of the thyroid gland, with image documentation. COMPARISON: [facility], US, US THYROID, 11/23/2018, 15:36. FINDINGS: Right: Thyroid lobe measures 5.5 x 1.5 x 1.6 cm, and is diffusely heterogeneous in echotexture. Left: Thyroid lobe measures 4.6 x 1.8 x 1.4 cm, and is diffusely heterogeneous in echotexture. 2 colloid cyst present largest measuring 7 mm. Isthmus: 5.0 mm thick. Nodule number: 1 Location: Right mid Size: Unchanged at 1.6 x 0.8 x 1.0 cm. Composition: Predominantly solid Echogenicity: Hypoechoic Shape: wider than tall. Margins: Smooth Echogenic foci: None Total points: 4 ACR TI-RADS category: Moderately suspicious Nodule number: 2 Location: Right inferior Size: Unchanged at 1.1 x 0.9 x 0.9 cm. Composition: Predominantly solid Echogenicity: Hypoechoic Shape: wider than tall. Margins: Smooth Echogenic foci: None Total points: 4 ACR TI-RADS category: Moderately suspicious Nodule number: 3 Location: Right inferior pole Size: Unchanged to slightly increased in size at 1.4 x 1.1 x 1.2 cm. Composition: Solid Echogenicity: Hypoechoic Shape: wider than tall. Margins: Smooth Echogenic foci: None Total points: 4 ACR TI-RADS category: Moderately suspicious Nodule number: 4 Location: Left superior Size: Unchanged 1.2 x 0.5 x 0.7 cm. Composition: Solid Echogenicity: Hypoechoic Shape: wider than tall. Margins: Smooth Echogenic foci: None Total points: 4 ACR TI-RADS category: Moderately suspicious IMPRESSION: No significant interval change in appearance or size of bilateral thyroid nodules and left colloid cyst. Recommend continued followup ultrasound as detailed below. ACR TI-RADS definitions and recommendations: TI-RADS 1 (benign): 0 points. FNA not needed. TI-RADS 2 (not suspicious): 2 points. FNA not needed. TI-RADS 3 (mildly suspicious): 3 points. * FNA if 2.5 cm or larger, follow up if 1.5 cm or larger (at 1, 3, and 5 years). TI-RADS 4 (moderately suspicious): 4-6 points. * FNA if 1.5 cm or larger, follow up if 1 cm or larger (at 1, 2, 3, and 5 years). TI-RADS 5 (highly suspicious): 7 points or more. * FNA if 1 cm or larger, follow up if 0.5 cm or larger (every year for 5 years). Dictated by: Sergio Dasilva [facility] Interpreted: Kennedy Riddle MD on 12/02/2019 at 16:39 Approved by: Kennedy Riddle M.D. on 12/02/2019 at 17:42
--- NOTE | 2019-12-01 17:10 | DI.MG.S_ITS ---
Patient Name: MODESTO VEGA date: 1950 Sex: F Attending Physician: Marty Indications: Date: 12/01/2019 17:01 At the request of: HENRRY PEARCE Procedure: MM screening mammo BI BILATERAL DIGITAL SCREENING MAMMOGRAM 3D/2D WITH CAD: 12/01/2019 CLINICAL: Routine screening. Family history of breast cancer. Comparison is made to exams dated: 11/02/2018 mammogram - [facility] and 06/09/2017 mammogram - [facility]. There are scattered fibroglandular elements in both breasts. Current study was also evaluated with a Computer Aided Detection (CAD) system. No significant masses, calcifications, or other findings are seen in either breast. There has been no significant interval change. IMPRESSION: NEGATIVE There is no mammographic evidence of malignancy. A 1 year screening mammogram is recommended. This exam was interpreted at Station ID: [id number]. NOTE: For mammograms, a report in lay terms will be sent to the patient. Approximately 15% of breast malignancies will not be visualized mammographically. In the management of a palpable breast mass, a negative mammogram must not discourage biopsy of a clinically suspicious lesion. Electronically Signed By: Humberto boggs/alma rosa:12/02/2019 07:55:23 letter sent: Normal Exam ACR BI-RADS Category 1: Negative [id number]
== END ==
PROVIDERS: PCP Nurse Practitioner; Referring Provider Nurse Practitioner; Visit Provider Nurse Practitioner
DX: Z12.31 Encounter for screening mammogram for malignant neoplasm of breast (principal); Z80.3 Family history of malignant neoplasm of breast; E04.2 Nontoxic multinodular goiter
CPT/HCPCS: 76536; 77063; 77067

== ENCOUNTER → 2020-09-26 10:39 | Outpatient (CLI) | payer MEDICARE, SELFPAY ==
[2020-09-26 12:20] LABS: Alanine Aminotransferase 20 IU/L (<35); Albumin 4.1 g/dL (3.5-5.0); Albumin Globulin Ratio 1.5 (1.0-2.8); Alkaline Phosphatase 62 U/L (38-126); Aspartate Aminotransferase 23 IU/L (14-36); BUN Creatinine Ratio 18.4 (6-22); Bilirubin Total 0.4 mg/dL (0.2-1.3); Blood Urea Nitrogen 14 mg/dL (7-17); Calcium 9.3 mg/dL (8.4-10.2); Carbon Dioxide 29 mmol/L (22-32); Chloride 106 mmol/L (98-107); Cholesterol 174 mg/dL (140-199); Estimated Glomerular Filt Rate > 60.0 mL/min (>60); Globulin 2.7 g/dL (1.7-4.1); Glucose 90 mg/dL (80-110); HDL Cholesterol 57 mg/dL (40-60); HEMOLYSIS < 15 (0-50); LDL Cholesterol Calculated 100 mg/dL (<100); Potassium 3.9 mmol/L (3.4-5.1); Sodium 139 mmol/L (137-145); Total Protein 6.8 g/dL (6.3-8.2); Triglycerides 86 mg/dL (35-150)
[2020-09-26 13:30] LABS: Free T4, Direct Thyroxine 0.95 ng/dL (0.78-2.19)
[2020-09-26 13:43] LABS: Thyroid Stimulating Hormone 1.92 uIU/mL (0.47-4.68)
[2020-09-26 16:19] LABS: Creatinine Urine Random 41.3 mg/dL
[2020-09-26 16:30] LABS: Microalbumin Urine Random < 0.6 mg/dL (0-1.6)
== END ==
PROVIDERS: PCP Nurse Practitioner; Referring Provider Nurse Practitioner; Visit Provider Nurse Practitioner
DX: E78.5 Hyperlipidemia, unspecified (principal); I10 Essential (primary) hypertension; Z79.899 Other long term (current) drug therapy
CPT/HCPCS: 36415; 80053; 80061; 82043; 82570; 84439; 84443; 84481

== ENCOUNTER → 2020-12-03 14:01 | Outpatient (CLI) | payer MEDICARE, SELFPAY ==
--- NOTE | 2020-12-03 14:02 | DI.US.S_ITS ---
PROCEDURE: US PELVIC COMPLETE INDICATIONS: PELVIC PAIN ON BIMANUAL EXAM TECHNIQUE: Real-time scanning was performed of the pelvic organs, with image documentation. Additional endovaginal scanning was necessary due to incomplete visualization of the adnexal and endometrial structures by transabdominal scanning. COMPARISON: None. FINDINGS: Uterus: Surgically absent. Ovaries: Surgically absent. Other: No pathologic free abdominal or pelvic fluid. IMPRESSION: No abnormality identified. No free fluid. Post hysterectomy and oophorectomy. Dictated by: Catalino Hook M.D. on 12/03/2020 at 15:51 Approved by: Catalino Hook M.D. on 12/03/2020 at 15:53
--- NOTE | 2020-12-03 14:02 | DI.MG.S_ITS ---
BILATERAL DIGITAL SCREENING MAMMOGRAM 3D/2D WITH CAD: 12/03/2020 CLINICAL: Routine screening. Family history of breast cancer. Comparison is made to exams dated: 12/01/2019 mammogram, 11/02/2018 mammogram - [facility], and 06/09/2017 mammogram - [facility]. There are scattered fibroglandular elements in both breasts. Current study was also evaluated with a Computer Aided Detection (CAD) system. There are benign calcifications in both breasts. No significant masses, calcifications, or other findings are seen in either breast. There has been no significant interval change. IMPRESSION: BENIGN There is no mammographic evidence of malignancy. A 1 year screening mammogram is recommended. This exam was interpreted at Station ID: [id number]. NOTE: For mammograms, a report in lay terms will be sent to the patient. Approximately 15% of breast malignancies will not be visualized mammographically. In the management of a palpable breast mass, a negative mammogram must not discourage biopsy of a clinically suspicious lesion. Electronically Signed By: Abdi Pollard acr/erikarad:12/03/2020 17:52:42 letter sent: Normal Exam ACR BI-RADS Category 2: Benign Finding(s) 3342F
== END ==
PROVIDERS: PCP Nurse Practitioner; Referring Provider Nurse Practitioner; Visit Provider Nurse Practitioner
DX: Z12.31 Encounter for screening mammogram for malignant neoplasm of breast (principal); Z80.3 Family history of malignant neoplasm of breast; M85.88 Other specified disorders of bone density and structure, other site; Z78.0 Asymptomatic menopausal state; R10.2 Pelvic and perineal pain; I10 Essential (primary) hypertension; R06.81 Apnea, not elsewhere classified; R06.83 Snoring; Z90.722 Acquired absence of ovaries, bilateral; Z90.710 Acquired absence of both cervix and uterus; Z82.62 Family history of osteoporosis
CPT/HCPCS: 76830; 76856; 77063; 77067; 77080

== ENCOUNTER → 2021-02-28 12:56 | Outpatient (CLI) | payer MEDICARE, SELFPAY ==
[2021-02-28 16:26] LABS: Appearance Urine UA CLEAR; Bilirubin Urine UA NEGATIVE (NEGATIVE); Color Urine UA YELLOW; Glucose Urine UA NEGATIVE (Negative); Ketones Urine UA NEGATIVE (NEGATIVE); Leukocyte Esterase Urine UA 1+ (NEGATIVE); Nitrite Urine UA NEGATIVE (Negative); Occult Blood Urine UA TRACE-LYSED (Negative); Protein Urine UA NEGATIVE (Negative); Specific Gravity Urine UA <=1.005 (1.000-1.035); Urobilinogen Urine UA 0.2 E.U./dL (0.2)
[2021-02-28 17:53] LABS: Bacteria Urine Occasional (0-1); Culture Indicated Urine Specimen Cultured; RBC Urine 0-1/HPF (0-5/HPF); Squamous Epithelial Cell Urine 0-1 /HPF (0-5/HPF); WBC Urine 1-5/HPF (0-5/HPF)
== END ==
PROVIDERS: PCP Nurse Practitioner; Referring Provider Nurse Practitioner; Visit Provider Nurse Practitioner
DX: R30.0 Dysuria (principal)
CPT/HCPCS: 81001; 87077; 87086; 87147

== ENCOUNTER → 2021-12-31 09:44 | Outpatient (CLI) | payer MEDICARE, SELFPAY ==
[2021-12-31 11:39] LABS: Creatinine Urine Random 73.4 mg/dL
[2021-12-31 11:44] LABS: Microalbumin Urine Random < 0.6 mg/dL (0-1.6)
[2021-12-31 11:59] LABS: Alanine Aminotransferase 20 IU/L (<35); Albumin 4.3 g/dL (3.5-5.0); Albumin Globulin Ratio 1.4 (1.0-2.8); Alkaline Phosphatase 62 U/L (38-126); Aspartate Aminotransferase 24 IU/L (14-36); Bilirubin Total 0.6 mg/dL (0.2-1.3); Blood Urea Nitrogen 15 mg/dL (7-17); Carbon Dioxide 29 mmol/L (22-32); Chloride 102 mmol/L (98-107); Cholesterol 180 mg/dL (140-199); Estimated Glomerular Filt Rate > 60 mL/min (>60); Globulin 3.1 g/dL (1.7-4.1); Glucose 76 mg/dL (80-110); HDL Cholesterol 53 mg/dL (40-60); HEMOLYSIS < 15 (0-50); LDL Cholesterol Calculated 108 mg/dL (<100); Potassium 3.8 mmol/L (3.4-5.1); Sodium 145 mmol/L (137-145); Total Protein 7.4 g/dL (6.3-8.2); Triglycerides 96 mg/dL (35-150)
[2021-12-31 12:15] LABS: Free T4, Direct Thyroxine 1.03 ng/dL (0.78-2.19)
[2021-12-31 12:29] LABS: Thyroid Stimulating Hormone 1.67 uIU/mL (0.47-4.68)
[2021-12-31 12:59] LABS: Hep C Virus Ab w/Reflex Quant NEGATIVE s/c (NEGATIVE)
--- NOTE | 2021-12-31 15:05 | DI.US.S_ITS ---
PROCEDURE: US THYROID INDICATIONS: 5 year follow up US thyroid nodules TECHNIQUE: Real-time scanning was performed of the thyroid gland, with image documentation. COMPARISON: [facility], [place], US THYROID, 12/01/2019, 17:23. FINDINGS: Right: Thyroid lobe measures 5.7 x 1.7 x 2 cm, and is diffusely heterogeneous in echotexture. Left: Thyroid lobe measures 4.7 x 1.5 x 1.7 cm, and is diffusely heterogeneous in echotexture. Isthmus: 3.9 mm thick. Nodule number: 1 Location: Right mid Size: Decreased at 0.9 x 0.9 x 0.7 cm Composition: Predominantly solid Echogenicity: Isoechoic Shape: wider than tall. Margins: Smooth Echogenic foci: None. Total points: 3 ACR TI-RADS category: Mildly suspicious Nodule number: 2 Location: Right mid Size: Unchanged 1.0 x 0.7 x 1.2 cm. Composition: Predominantly solid Echogenicity: Isoechoic Shape: wider than tall. Margins: Smooth Echogenic foci: None. Total points: 3 ACR TI-RADS category: Mildly suspicious Nodule number: 3 Location: Right and Size: Decreased at 0.7 x 1.0 x 0.9 cm. Composition: Solid Echogenicity: Isoechoic Shape: wider than tall. Margins: Smooth Echogenic foci: None. Total points: 3 ACR TI-RADS category: Mildly suspicious Nodule number: 4 Location: Left superior Size: Unchanged 1.1 x 0.5 x 0.7 cm. Composition: Solid Echogenicity: Isoechoic Shape: wider than tall. Margins: Smooth Echogenic foci: None Total points: 3 ACR TI-RADS category: Mildly suspicious Nodule number: 5 Location: Left mid Size: Unchanged 0.5 x 0.3 x 0.4 cm. Composition: Solid Echogenicity: Hypoechoic Shape: wider than tall. Margins: Smooth Echogenic foci: None. Total points: 4 ACR TI-RADS category: Moderately suspicious Nodule number: 6 Location: Left inferior Size: Unchanged at 1.1 x 0.4 x 0.8 cm. Composition: Cystic Echogenicity: Anechoic Shape: wider than tall. Margins: Smooth Echogenic foci: None. Total points: 0 ACR TI-RADS category: Benign IMPRESSION: 1. Stable appearance of bilateral thyroid nodules. ACR TI-RADS definitions and recommendations: TI-RADS 1 (benign): 0 points. FNA not needed. TI-RADS 2 (not suspicious): 2 points. FNA not needed. TI-RADS 3 (mildly suspicious): 3 points. * FNA if 2.5 cm or larger, follow up if 1.5 cm or larger (at 1, 3, and 5 years). TI-RADS 4 (moderately suspicious): 4-6 points. * FNA if 1.5 cm or larger, follow up if 1 cm or larger (at 1, 2, 3, and 5 years). TI-RADS 5 (highly suspicious): 7 points or more. * FNA if 1 cm or larger, follow up if 0.5 cm or larger (every year for 5 years). Dictated by: Sergio Dasilva [facility] Interpreted: Krystal Sterling MD on 12/31/2021 at 16:05 Transcribed by: MARILYN on 12/31/2021 at 16:16 Approved by: Krystal Sterling M.D. on 01/01/2022 at 8:14
--- NOTE | 2021-12-31 15:06 | DI.MG.S_ITS ---
BILATERAL DIGITAL SCREENING MAMMOGRAM 3D/2D WITH CAD: 12/31/2021 CLINICAL: Routine screening. Family history of breast cancer. Comparison is made to exams dated: 12/03/2020 mammogram, 12/01/2019 mammogram, and 11/02/2018 mammogram - [facility]. There are scattered areas of fibroglandular density in both breasts (category b / 25%-50% glandular tissue). Current study was also evaluated with a Computer Aided Detection (CAD) system. There are benign calcifications in both breasts. No significant masses, calcifications, or other findings are seen in either breast. There has been no significant interval change. IMPRESSION: BENIGN There is no mammographic evidence of malignancy. A 1 year screening mammogram is recommended. Based on the Tyrer Cuzick model (a risk assessment model) the patient's lifetime risk is 5.6% and her 10 year risk is 3.3%. According to the ACR, ACS, and NCCN guidelines, an annual breast MRI exam along with mammogram is recommended if the patient's lifetime risk is 20% or greater. This exam was interpreted at Station ID: [id number]. NOTE: For mammograms, a report in lay terms will be sent to the patient. Approximately 15% of breast malignancies will not be visualized mammographically. In the management of a palpable breast mass, a negative mammogram must not discourage biopsy of a clinically suspicious lesion. Electronically Signed By: Arthur starr/alma rosa:01/01/2022 07:44:04 letter sent: Normal Exam ACR BI-RADS Category 2: Benign Finding(s) 3342F
== END ==
PROVIDERS: PCP Nurse Practitioner; Referring Provider Nurse Practitioner; Visit Provider Nurse Practitioner
DX: Z12.31 Encounter for screening mammogram for malignant neoplasm of breast (principal); Z80.3 Family history of malignant neoplasm of breast; Z12.11 Encounter for screening for malignant neoplasm of colon; Z11.59 Encounter for screening for other viral diseases; E04.2 Nontoxic multinodular goiter; E78.2 Mixed hyperlipidemia; I10 Essential (primary) hypertension; L43.9 Lichen planus, unspecified; Z79.899 Other long term (current) drug therapy; Z91.89 Other specified personal risk factors, not elsewhere classified
CPT/HCPCS: 36415; 76536; 77063; 77067; 80053; 80061; 82043; 82570; 84439; 84443; 84481; 86803

== ENCOUNTER → 2022-03-26 11:16 | Outpatient (CLI) | payer MEDICARE, SELFPAY ==
--- NOTE | 2022-03-26 | DI.US.S_ITS ---
PROCEDURE: US PERIPH VENOUS LOW EXTREM LT INDICATIONS: CALF PAIN TECHNIQUE: Real-time imaging, as well as color and pulse Doppler interrogation, were performed of the lower extremity deep veins from the inguinal ligament to the popliteal fossa. COMPARISON: None. FINDINGS: The common femoral, femoral and popliteal veins are normally compressible, and free of intraluminal thrombus. Color and pulse Doppler demonstrate normal phasic intraluminal flow. There is normal augmentation response to distal compression maneuver. Echogenic collection medial to the knee is noted without increased vascularity. IMPRESSION: No deep venous thrombosis. Echogenic collection medial to the knee without increased vascularity. This may represent hematoma or potentially abscess in appropriate clinical circumstances. Dictated by: Krystal Sterling M.D. on 03/26/2022 at 11:59 Approved by: Krystal Sterling M.D. on 03/26/2022 at 12:00
== END ==
PROVIDERS: PCP Nurse Practitioner; Referring Provider Student in an Organized Health Care Education/Training Program; Visit Provider Student in an Organized Health Care Education/Training Program
DX: M79.662 Pain in left lower leg (principal)
CPT/HCPCS: 93971

== ENCOUNTER → 2022-04-03 10:57 | Outpatient (CLI) | payer MEDICARE, SELFPAY ==
[2022-04-03 12:08] LABS: Alanine Aminotransferase 24 IU/L (<35); Albumin 4.3 g/dL (3.5-5.0); Albumin Globulin Ratio 1.4 (1.0-2.8); Alkaline Phosphatase 68 U/L (38-126); Aspartate Aminotransferase 25 IU/L (14-36); BUN Creatinine Ratio 17.1 (6-22); Bilirubin Total 0.5 mg/dL (0.2-1.3); Blood Urea Nitrogen 12 mg/dL (7-17); Calcium 8.7 mg/dL (8.4-10.2); Carbon Dioxide 30 mmol/L (22-32); Chloride 102 mmol/L (98-107); Cholesterol 145 mg/dL (140-199); Estimated Glomerular Filt Rate > 60 mL/min (>60); Glucose 89 mg/dL (80-110); HDL Cholesterol 49 mg/dL (40-60); HEMOLYSIS < 15 (0-50); LDL Cholesterol Calculated 78 mg/dL (<100); Sodium 142 mmol/L (137-145); Total Protein 7.3 g/dL (6.3-8.2); Triglycerides 88 mg/dL (35-150)
== END ==
PROVIDERS: PCP Nurse Practitioner; Referring Provider Nurse Practitioner; Visit Provider Nurse Practitioner
DX: E78.2 Mixed hyperlipidemia (principal); Z79.899 Other long term (current) drug therapy; I10 Essential (primary) hypertension
CPT/HCPCS: 36415; 80053; 80061

== ENCOUNTER → 2023-02-10 17:39 | Outpatient (CLI) | payer MEDICARE, SELFPAY ==
--- NOTE | 2023-02-10 17:41 | DI.MG.S_ITS ---
BILATERAL DIGITAL SCREENING MAMMOGRAM 3D/2D WITH CAD: 02/10/2023 CLINICAL: Routine screening. Family history of breast cancer. Comparison is made to exams dated: 12/31/2021 mammogram, 12/03/2020 mammogram, 12/01/2019 mammogram, and 11/02/2018 mammogram - [facility]. There are scattered areas of fibroglandular density in both breasts (category b / 25%-50% glandular tissue). Current study was also evaluated with a Computer Aided Detection (CAD) system. There are benign calcifications in both breasts. There also are benign vascular calcifications in the right breast. No significant masses, calcifications, or other findings are seen in either breast. There has been no significant interval change. IMPRESSION: BENIGN There is no mammographic evidence of malignancy. A 1 year screening mammogram is recommended. Based on the Tyrer Cuzick model (a risk assessment model) the patient's lifetime risk is 5.3% and her 10 year risk is 3.4%. According to the ACR, ACS, and NCCN guidelines, an annual breast MRI exam along with mammogram is recommended if the patient's lifetime risk is 20% or greater. This exam was interpreted at Station ID: [id number]. NOTE: For mammograms, a report in lay terms will be sent to the patient. Approximately 15% of breast malignancies will not be visualized mammographically. In the management of a palpable breast mass, a negative mammogram must not discourage biopsy of a clinically suspicious lesion. Electronically Signed By: Catalino schofield/alma rosa:02/11/2023 09:11:04 letter sent: Normal Exam ACR BI-RADS Category 2: Benign Finding(s) 3342F
== END ==
LOC: MAMMO 17:40
PROVIDERS: PCP Nurse Practitioner; Referring Provider Nurse Practitioner; Visit Provider Nurse Practitioner
DX: Z12.31 Encounter for screening mammogram for malignant neoplasm of breast (principal); Z80.3 Family history of malignant neoplasm of breast
CPT/HCPCS: 77063; 77067

== ENCOUNTER → 2023-03-19 08:14 | Outpatient (CLI) | payer MEDICARE, SELFPAY ==
[2023-03-19 09:54] LABS: Alanine Aminotransferase 21 IU/L (<35); Albumin 4.2 g/dL (3.5-5.0); Albumin Globulin Ratio 1.4 (1.0-2.8); Alkaline Phosphatase 63 U/L (38-126); Aspartate Aminotransferase 24 IU/L (14-36); Bilirubin Total 0.7 mg/dL (0.2-1.3); Blood Urea Nitrogen 15 mg/dL (7-17); Calcium 9.4 mg/dL (8.4-10.2); Carbon Dioxide 29 mmol/L (22-32); Chloride 105 mmol/L (98-107); Cholesterol 184 mg/dL (140-199); Estimated Glomerular Filt Rate > 60 mL/min (>60); Glucose 96 mg/dL (80-110); HDL Cholesterol 63 mg/dL (40-60); HEMOLYSIS 16 (0-50); LDL Cholesterol Calculated 101 mg/dL (<100); Potassium 4.2 mmol/L (3.4-5.1); Sodium 139 mmol/L (137-145); Total Protein 7.2 g/dL (6.3-8.2); Triglycerides 101 mg/dL (35-150)
[2023-03-19 09:57] LABS: Creatinine Urine Random 81.1 mg/dL
[2023-03-19 10:00] LABS: Microalbumin Urine Random < 0.6 mg/dL (0-1.6)
[2023-03-19 10:12] LABS: Free T3, Triiodothyronine Free 3.51 pg/mL (2.77-5.27); Free T4, Direct Thyroxine 0.99 ng/dL (0.78-2.19)
[2023-03-19 10:26] LABS: Thyroid Stimulating Hormone 2.03 uIU/mL (0.47-4.68)
== END ==
PROVIDERS: PCP Nurse Practitioner; Referring Provider Nurse Practitioner; Visit Provider Nurse Practitioner
DX: F41.9 Anxiety disorder, unspecified (principal); E78.2 Mixed hyperlipidemia; I10 Essential (primary) hypertension; Z79.899 Other long term (current) drug therapy
CPT/HCPCS: 36415; 80053; 80061; 82043; 82570; 84439; 84443; 84481

== ENCOUNTER → 2024-01-29 14:21 | Outpatient (CLI) | payer MEDICARE, SELFPAY | PROVIDERS: PCP Family Medicine; Visit Provider Family Medicine | DX: R32 Unspecified urinary incontinence (principal) | CPT/HCPCS: 87086 ==

== ENCOUNTER → 2024-03-08 11:06 | Outpatient (CLI) | payer MEDICARE, SELFPAY ==
[2024-03-08 13:02] LABS: Alanine Aminotransferase 19 IU/L (<35); Albumin 4.2 g/dL (3.5-5.0); Albumin Globulin Ratio 1.8 (1.0-2.8); Alkaline Phosphatase 71 U/L (38-126); Aspartate Aminotransferase 24 IU/L (14-36); BUN Creatinine Ratio 19.2 (6-22); Bilirubin Total 0.6 mg/dL (0.2-1.3); Blood Urea Nitrogen 15 mg/dL (7-17); Calcium 9.6 mg/dL (8.4-10.2); Carbon Dioxide 28 mmol/L (22-32); Chloride 107 mmol/L (98-107); Cholesterol 177 mg/dL (140-199); Estimated Glomerular Filt Rate > 60 mL/min (>60); Globulin 2.4 g/dL (1.7-4.1); Glucose 95 mg/dL (80-110); HDL Cholesterol 56 mg/dL (40-60); Potassium 4.5 mmol/L (3.4-5.1); Sodium 139 mmol/L (137-145); Total Protein 6.6 g/dL (6.3-8.2)
[2024-03-08 13:04] LABS: Hemoglobin A1C% w Est Avg Glu 5.2 % (4.0-6.0)
[2024-03-08 13:41] LABS: HEMOLYSIS 28 (0-50); LDL Cholesterol Calculated 96 mg/dL (<100); Triglycerides 123 mg/dL (35-150)
== END ==
PROVIDERS: PCP Family Medicine; Referring Provider Family Medicine; Visit Provider Family Medicine
DX: Z13.1 Encounter for screening for diabetes mellitus (principal); E78.5 Hyperlipidemia, unspecified; I10 Essential (primary) hypertension
CPT/HCPCS: 36415; 80053; 80061; 83036

== ENCOUNTER → 2024-10-26 13:35 | Outpatient (CLI) | payer MEDICARE, SELFPAY | LOC: CAR 13:36 | PROVIDERS: PCP Family Medicine; Referring Provider Family Medicine; Visit Provider Family Medicine | DX: R00.2 Palpitations (principal); R55 Syncope and collapse | CPT/HCPCS: 93242 ==